=== PATIENT | male | born 1995 | race Caucasian/White ===

== ENCOUNTER 2020-07-02 13:58 | Inpatient (IN) | payer OTHER ==
[~2020-07-02] VITALS: Ht 170.2 cm; Wt 70.5 kg
--- NOTE | 2020-07-02 14:27 | RAD ---
XR FOREARM_LEFT 2 VIEWS History: Impaled nail. Comparison: None. Technique: 2 views the left forearm. Findings: A metallic nail extends through the distal forearm with approximately 2.9 cm beyond the skin surface and 3.7 cm within the arm. The nail is superimposed on the ulna in both projections, however no osseo us fragments are identified to suggest extension through the bone. Subcutaneous air in the volar soft tissues. Impression: 1. Metallic nail within the soft tissues of the distal forearm. Approximately 3.7 cm of length remai n within the soft tissues. Though the nail is superimposed on the ulna in both projections, there are no fracture lucencies or osseous fragments to suggest transcortical extension. Additional oblique vi ews may be required to ensure no bony involvement. Electronically signed by: Stevo Holland MD (07/02/2020 2:24 PM) [facility]
--- NOTE | 2020-07-02 14:31 | ED.ADGEN ---
Past Medical History Past Medical History: No Pertinent History Past Surgical History: No Surgical History, Tonsillectomy Smoking Status: Never Smoker Alcohol Use: Occasionally Drug Use: Marijuana General Adult EDM: Chief Complaint: UPPER EXTREMITY INJURY HPI: HPI: Patient is a 25 year old male who presents emergency department with complaints of a nail being stuck in his left forearm. Patient reports that he was at work when he accidentally shot a nail into his left forearm. Patient states he is right-hand dominant his last tetanus shot was about a year ago. Patient states he is unable to move his left wrist or fingers because of the increase in pain. He states that his fingers feel little tingly but denies any numbness or weakness. He currently rates his pain a 3 out of 10 on the pain scale, he reports that the pain is worse with movement, rest is only thing that helps to take the pain away. He denies any tobacco use, states he smokes marijuana and CBD products daily. Review of Systems: Review of Systems: Complete ROS is negative unless otherwise noted in HPI. Current Medications: Current Medications Medications (Trade) Dose Ordered Sig/Chelita Start Time Stop Time Status Last Admin Dose Admin Cefazolin Sodium (Ancef) 1 gm 1X ONCE 07/02/20 15:15 07/02/20 15:16 DC Morphine Sulfate (Morphine Sulfate) 4 mg 1X ONCE 07/02/20 15:15 07/02/20 15:16 DC Ondansetron HCl (Zofran) 4 mg 1X ONCE 07/02/20 15:15 07/02/20 15:16 DC Allergies: Allergies: Allergies Coded Allergies Type Severity Reaction Last Updated Verified No Known Drug Allergies 07/02/20 No Physical Exam: PE: See Above Constitutional: Well developed, well nourished, no acute distress, non-toxic appearance. [] HENT: Normocephalic, atraumatic, bilateral external ears normal, nose normal. [] Eyes: PERRLA, EOMI, conjunctiva normal, no discharge. [] Neck: Normal range of motion, no stridor. [] Cardiovascular:Heart rate regular rhythm Lungs & Thorax: Respirations even and unlabored, no retractions, no respiratory distress Skin: Warm, dry, no erythema, no rash; metal nail sticking out through the posterior medial left forearm, there is 1/2 cm diameter entrance wound to the anterior forearm, no active bleeding, no purulent discharge [] Extremities: Left forearm: Medial tenderness to palpation without crepitus or obvious deformity, cap refill less than 2 seconds, no cyanosis, ROM limited due to pain, localized edema at the site of the foreign body Neurologic: Alert and oriented X 3, normal sensory, no focal deficits noted. [] Psychologic: Affect normal, judgement normal, mood normal. [] Current Patient Data: Vital Signs: Vital Signs Date Time Temp Pulse Resp B/P (MAP) Pulse Ox O2 Delivery O2 Flow Rate FiO2 07/02/20 14:05 98.7 89 16 157/95 (115) 98 Room Air 98.7 EKG: EKG: [] Heart Score: C/O Chest Pain: No Radiology/Procedures: Radiology/Procedures: PROCEDURE: FOREARM LEFT XR FOREARM_LEFT 2 VIEWS History: Impaled nail. Comparison: None. Technique: 2 views the left forearm. Findings: A metallic nail extends through the distal forearm with approximately 2.9 cm beyond the skin surface and 3.7 cm within the arm. The nail is superimposed on the ulna in both projections, however no osseous fragments are identified to suggest extension through the bone. Subcutaneous air in the volar soft tissues. Impression: 1. Metallic nail within the soft tissues of the distal forearm. Approximately 3.7 cm of length remain within the soft tissues. Though the nail is superimposed on the ulna in both projections, there are no fracture lucencies or osseous fragments to suggest transcortical extension. Additional oblique views may be required to ensure no bony involvement. Electronically signed by: Stevo Holland MD (07/02/2020 2:24 PM) [facility] [] Course & Med Decision Making: Course & Med Decision Making Pertinent Labs and Imaging studies reviewed. (See chart for details) 1506: Spoke with Dr. Carson will admit pt to the hospitalist and keep pt NPO for surgery this evening. 1510-spoke with Dr. Mancia who is the admitting physician, and care was assumed following discussion of patient. Will admit patient for left forearm foreign body Patient's vital signs stable. Patient remains afebrile, appears nontoxic, respirations even and unlabored. Patient will be admitted to the medical/surgical floor. Patient's case and plan of care also discussed with Dr. Segura [] Maggy Disclaimer: Dragon Disclaimer: This electronic medical record was generated, in whole or in part, using a voice recognition dictation system. Departure Departure Impression: Primary Impression: Foreign body in left forearm Additional Impression: Injury by nail gun Disposition: 09 ADMITTED INPATIENT Admitting Physician: ISABEL Key) Condition: STABLE Referrals: UNKNOWN PCP NAME (PCP) Problem Qualifiers Primary Impression: Foreign body in left forearm Encounter type: initial encounter Qualified Codes: S50.852A - Superficial foreign body of left forearm, initial encounter Additional Impression: Injury by nail gun Encounter type: initial encounter Qualified Codes: W29.4XXA - Contact with nail gun, initial encounter GREGOR BERNAL LIVE SOURCE OPERATOR Jul 02, 2020 14:31
[2020-07-02] MEDS ORDERED: ONDANSETRON PF 4 MG/2 ML VIAL. IV ONE (15:15)
[2020-07-02] MEDS ORDERED: ceFAZolin SODIUM IV Push 1 GM VIAL. IVP ONE (15:15)
[2020-07-02] MEDS ORDERED: MORPHINE SULFATE 4 MG/ML VIAL. IV ONE (15:15)
[2020-07-02] MEDS ORDERED: IV NORMAL SALINE 1000ML BAG 1,000 ML IV SCH (15:30)
[2020-07-02] MEDS ORDERED: MORPHINE SULFATE 4 MG/ML VIAL. IV PRN ×2 (15:30)
[2020-07-02] MEDS ORDERED: PIP/TAZO PER PHARMACY MC PRN (15:30)
[2020-07-02] MEDS ORDERED: ONDANSETRON PF 4 MG/2 ML VIAL. IV PRN (15:30)
--- NOTE | 2020-07-02 15:33 | PDOC1 ---
History and Physical Date of Admission Date of Admission DATE: 07/02/20 TIME: 15:20 Identification/Chief Complaint Chief Complaint Upper extremity injury Source Source: Caregiver, Chart review, Patient History of Present Illness History of Present Illness Is a 25-year-old male with no significant past medical history presents to the ED after suffering an injury to his left upper extremity today at work. Patient works in construction and was carrying a nail gun up a ladder at work today when he accidentally shot himself in his left forearm. Upon evaluation in the ED he rates his pain as 3/10, worse with movement. States his last tetanus shot was about a year ago. Orthopedic surgery was consulted in the ED for surgical removal of nail. Will admit patient for further medical management. Past Medical History Past Medical History Denies medical history Past Surgical History Past Surgical History: Tonsillectomy Family History Family History Denies significant family history Social History Smoke: No ALCOHOL: occassional Drugs: Marijuana Current Medications Current Medications Current Medications Morphine Sulfate (Morphine Sulfate) 4 mg 1X ONCE IV ; Start 07/02/20 at 15:15; Stop 07/02/20 at 15:16; Status DC Ondansetron HCl (Zofran) 4 mg 1X ONCE IV ; Start 07/02/20 at 15:15; Stop 07/02/20 at 15:16; Status DC Cefazolin Sodium (Ancef) 1 gm 1X ONCE IVP ; Start 07/02/20 at 15:15; Stop 07/02/20 at 15:16; Status DC Allergies Allergies: Coded Allergies: No Known Drug Allergies (Unverified , 07/02/20) ROS Review of System GENERAL: No history of weight change, weakness or fevers. SKIN: No bruising, hair changes or rashes. EYES: No blurred, double or loss of vision. NOSE AND THROAT: No history of nosebleeds, hoarseness or sore throat. HEART: Denies chest pain, denies palpitations. LUNGS: Denies cough, hemoptysis, wheezing or shortness of breath. GASTROINTESTINAL: Denies nausea, vomiting, abdominal pain. GENITOURINARY: Denies dysuria, frequency, urgency, hematuria. NEUROLOGIC: Denies history of numbness, tingling, tremor or weakness. PSYCHIATRIC: Denies anxiety, denies depression. ENDOCRINE: No history of heat or cold intolerance, polyuria or polydipsia. EXTREMITIES: Left forearm pain. Denies muscle weakness, joint pain, pain on walking or stiffness. Physical Exam Physical Exam General: Alert, Oriented X3, Cooperative, No acute distress HEENT: PERRLA, EOMI Lungs: Clear to auscultation, Normal air movement Heart: RRR, no murmurs Cardiovascular: S1, S2 Abdomen: Normal bowel sounds, Soft, No tenderness Extremities: Nail penetrating through left forearm. No clubbing, No cyanosis Skin: No rashes, No significant lesion Neuro: Normal speech, Normal tone, Sensation intact Psych/Mental Status: Mental status NL, Mood NL Vitals Vitals Vital Signs Date Time Temp Pulse Resp B/P (MAP) Pulse Ox O2 Delivery O2 Flow Rate FiO2 07/02/20 14:05 98.7 89 16 157/95 (115) 98 Room Air 98.7 Images Images FOREARM LEFT XR FOREARM_LEFT 2 VIEWS History: Impaled nail. Comparison: None. Technique: 2 views the left forearm. Findings: A metallic nail extends through the distal forearm with approximately 2.9 cm beyond the skin surface and 3.7 cm within the arm. The nail is superimposed on the ulna in both projections, however no osseous fragments are identified to suggest extension through the bone. Subcutaneous air in the volar soft tissues. Impression: 1. Metallic nail within the soft tissues of the distal forearm. Approximately 3.7 cm of length remain within the soft tissues. Though the nail is superimposed on the ulna in both projections, there are no fracture lucencies or osseous fragments to suggest transcortical extension. Additional oblique views may be required to ensure no bony involvement. VTE Prophylaxis Ordered VTE Prophylaxis Devices: No VTE Pharmacological Prophylaxi: Yes Assessment/Plan Assessment/Plan Nail in the left upper extremity Plan: Consult to orthopedic surgery Anticipate surgical intervention today IV Zosyn Patient is up-to-date on tetanus vaccination Pain management FEN - NPO; then regular diet PPX - Heparin FULL CODE Dispo - inpatient for above; he names his mother is a surrogate decision-maker. Justifications for Admission Other Justification LIBORIO DILL MD Jul 02, 2020 15:33
[2020-07-02] MEDS ORDERED: HYDROcodone/APAP 5/325MG 1 TAB TABLET PO PRN ×2 (15:45)
[2020-07-02] MEDS ORDERED: BISACODYL 10 MG SUPP.RECT. PR PRN (15:45)
[2020-07-02] MEDS ORDERED: ONDANSETRON PF 4 MG/2 ML VIAL. IVP PRN (15:45)
[2020-07-02] MEDS ORDERED: ACETAMINOPHEN 325 MG TABLET. PO PRN (15:45)
[2020-07-02] MEDS ORDERED: MAGNESIUM HYDROXIDE 2,400 MG/30 ML ORAL.SUSP. PO PRN (15:45)
[2020-07-02] MEDS ORDERED: CALCIUM CARBONATE 500 MG TAB.CHEW PO PRN (15:45)
[2020-07-02] MEDS ORDERED: ZOLPIDEM 5 MG TABLET. PO PRN (15:45)
[2020-07-02] MEDS ORDERED: oxyCODONE/APAP 5/325 1 TAB TABLET PO PRN ×2 (15:45)
[2020-07-02] MEDS ORDERED: MAG HYDROX/ALUMINUM HYD/SIMETH 30 ML ORAL.SUSP PO PRN (15:45)
[2020-07-02] MEDS ORDERED: MORPHINE SULFATE 2 MG/ML VIAL. IVP PRN (16:45)
[2020-07-02] MEDS ORDERED: PROCHLORPERAZINE 10 MG/2 ML VIAL. IVP PRN (16:45)
[2020-07-02] MEDS ORDERED: fentaNYL PF VIAL 100 MCG/2 ML VIAL IVP PRN ×2 (16:45)
[2020-07-02] MEDS ORDERED: HYDROmorphone 2 MG/ML VIAL IVP PRN (16:45)
[2020-07-02] MEDS ORDERED: IV RINGERS,LACTATED 1000ML 1,000 ML IV SCH (16:45)
[2020-07-02] MEDS ORDERED: PIPERACILLIN/TAZOBACTAM 3.375 GM in IV NORMAL SALINE 50ML 50 ML IV SCH (17:00)
[2020-07-02] MEDS ORDERED: fentaNYL PF VIAL 100 MCG/2 ML VIAL ONE (18:23)
[2020-07-02] MEDS ORDERED: KETOROLAC 30 MG/ML VIAL. ONE (18:31)
[2020-07-02] MEDS ORDERED: SEVOFLURANE 16 TO 30 MINUTES. IH ONE (18:31)
[2020-07-02] MEDS ORDERED: BUPIVACAINE-EPI 0.5%-1:200000 MPF 30 ML VIAL. ONE (18:58)
[2020-07-02] MEDS ORDERED: CEPH750C9 PO (19:24)
[2020-07-02] MEDS ORDERED: HYDR-2759 PO (19:24)
--- NOTE | 2020-07-02 19:40 | DISCH ---
DISCHARGE INSTRUCTIONS Condition on Discharge Condition on Discharge: Stable Activity After Discharge Activity Instructions for Disc: Other, see below (Fine motor use with left hand only no hard grasping, may eat write type and similar activities) Bathing Instructions: Shower-keep dressing dry Lifting Instructions after Dis: No heavy lifting, No pulling or pushing Weight Bearing Status after Di: Non weight bearing Diet after Discharge Diet after Discharge: Regular Wound Incision Care Wound/Incision Care: Ice to area for comfort, Keep wound elevated, Do not change dressing (Keep dressing intact unless it is soiled or causing numbness and tingling because it is tight. Cover or elevate to avoid getting it wet in the shower) Contacting the after DC Call your doctor for: Concerns you may have Follow-Up Follow up with: Dr. Carson or Reid 7 to 10 days ELLA CARSON MD Jul 02, 2020 19:40
[2020-07-02 19:45] VITALS: BP 150/86
[2020-07-02] MEDS ORDERED: HYDROcodone/APAP 7.5/325MG 1 TAB TABLET PO ONE (20:15)
[2020-07-02] MEDS ORDERED: HEPARIN for SUB-Q USE 5,000 UNIT/ML VIAL. SQ SCH (22:00)
--- NOTE | 2020-07-02 23:07 | PDOC4 ---
Operative Note Operative Note Date of surgery: 07/02/2020 Preoperative diagnosis: Foreign body (nail) left forearm Postoperative diagnosis: Same Operative procedure: Removal foreign body and irrigation debridement left for carolyne Surgeon: Alli Anesthesia: General Estimated blood loss: 15 cc Complications: None Operative indications: Please see my preoperative emergency department consultation for detailed operative indications and note that patient was injured at work when nail from a nail gun penetrated into his left forearm. Sensation to light touch and gross motor function and pulses capillary refill appeared to be intact but he could not move his fingers likely due to severe pain. I did go over with him the concern for potential nerve or blood vessel damage with the penetrating injury, the necessity of removing the nail atraumatically as possible and the concern of foreign material from the adhesive and strip that holds the nails together. We did talk about the possibility of later nerve compromise from swelling possibility of infection and other medical or other anesthetic complications. He agrees to proceed with surgical evaluation and treatment which was delayed until n.p.o. status was acceptable for anesthesia. Operative text: Patient was identified procedure verified patient placed in the supine position on the operating table. After adequate amounts of general anesthesia were administered the left upper extremity was prepped and draped in standard sterile fashion with an upper arm tourniquet. After timeout was performed patient procedure identified and verified the incision was first widened at the exit over the ulnar side of the forearm. And closely examining the x-rays and the amount of the point of the nail sticking out it was clear that the head of the nail was very significantly buried in the forearm and I judged that pushing it backward could likely cause more damage as well as increase the likelihood of leaving a foreign body with the adhesive thin strip material that was still attached to the nail near its midpoint. Blunt dissection was carried out therefore surrounding the exit portion of the nail on the ulnar aspect of the forearm. Some venous bleeding was encountered superficially and the tourniquet was inflated to 250 mmHg temporarily where additional probing and blunt dissection carried out to gently release tissue and remove the nail from the ulnar exit wound. Thorough irrigation was carried out with normal saline solution after opening up the entrance wound with a longitudinal incision and probing which appeared to take a course superficial to the median nerve as the area coursed a bit more proximal and ulnar. Superficial venous bleeding was controlled by electrocautery and further thorough irrigation carried out from both sides of the wound ensuring good irrigation and debridement of slightly damaged devitalized tissue at the skin area more so at the entrance wound than the exit wound. Following thorough irrigation and blunt dissection and exploration of the area no active arterial bleeding was noted after the tourniquet was deflated and a loose closure was accomplished of both wounds with 3-0 nylon suture. Both areas were then infused superficially with half percent Marcaine with epinephrine and sterile dressings were placed using Xeroform gauze 4 x 4's cast padding and a gently tensioned Jonnathan wrap. Fingers were noted be warm and pink following deflation of the tourniquet and it was noted in postop holding that patient could fully flex and extend his fingers and his sensation to the median ulnar and radial nerve distribution appeared grossly intact as tested his motor function and capillary refill. ELLA PIÑA MD Jul 02, 2020 23:07
--- NOTE | 2020-07-03 02:24 | CONS ---
DATE OF CONSULTATION: 07/02/2020 REQUESTING PHYSICIAN: Akila Hooper APRN. REASON FOR CONSULTATION: Foreign body/nail in left forearm. HISTORY OF PRESENT ILLNESS: The patient is a 25-year-old male that was at work today who was climbing up a ladder and indicates that he had to reach around to try to hold on and a nail gun unfortunately contacted his arm twice, the second time going off and shooting a collated nail into his forearm. The nail had penetrated the skin such that he could not get it out of his left forearm. He is right hand dominant and was unable to move his fingers due to severe pain and has controlled pain at rest, but very severe with movement. PAST MEDICAL HISTORY: He denies. PAST SURGICAL HISTORY: Only significant for a tonsillectomy. ALLERGIES: No known drug allergies. MEDICATIONS: No current medications. REVIEW OF SYSTEMS: Denies any fever, chills, chest pain, shortness of breath, focal weakness. Does have a little bit of tingling in the fingers occasionally, especially with any attempted movement. SOCIAL HISTORY: Denies cigarette smoking, occasional alcohol use and he does use marijuana as well as CBD products. PHYSICAL EXAMINATION: VITAL SIGNS: Pleasant, cooperative, 25-year-old male, alert and oriented, mild distress because of the pain in his left forearm. HEENT: Atraumatic, normocephalic. HEART: Regular rate and rhythm. LUNGS: Clear to auscultation bilaterally. EXTREMITIES: On examination of the left forearm, he has an entry point along the volar mid distal forearm area and obliquely nail tracts that protrudes along the ulnar aspect more centrally in his forearm. He cannot move the fingers because they feel pinned down. Grossly, he is intact to light touch sensation in the median, ulnar and radial nerve distribution. Capillary refill is intact throughout, and he does have distal palpable pulses. Compartments appear soft. The pointed portion of the nail was sticking out the ulnar portion of his mid forearm and there is visible the fastening material from that sticks the string of nails together. There is no evidence of gross contamination nor did he appear to have close on that at the nail shot through. X-rays show a headed appears to be a framing nail in the forearm and does not appear to have contacted any bone. There is no evidence of fracture or cortical abnormality present. IMPRESSION: Foreign body nail and left forearm. PLAN: I went over with he and his mom the recommended excision of the nail in the operating room and I did indicate to him that there is a possibility of additional damage in removing the nail, but I would attempt to mitigate that with washing the area out well and attempting not to leave any foreign material such as the adhesive collating the nails to the strips. We did talk about the possibility of nerve or blood vessel damage, although not currently symptomatic. It is certainly possible later swelling or damage to the tissue; even removing the nail could cause some nerve or blood vessel damage, which may or may not be recoverable. We also talked about the possibility of infection, medical or other anesthetic complications among others. He wishes to proceed with surgical evaluation and treatment, which will occur today pending adequate n.p.o. status as he has last eaten at noontime today, so planning potentially a 6:[address]: Walt TID: [id number]
== END 2020-07-02 19:44 | disposition home or self-care (01) | DRG 581 ==
LOC: ER 13:58 → ED HOLD 15:10
PROVIDERS: ADMIT Family Medicine; ATTEND Family Medicine
PROC: 3E1U38Z Irrigation of Joints using Irrigating Substance, Percutaneous Approach (ICD-10-PCS; 2020-07-02)
PROC: 0JCH0ZZ Extirpation of Matter from Left Lower Arm Subcutaneous Tissue and Fascia, Open Approach (ICD-10-PCS; 2020-07-02)
PROC: 0KBB0ZZ Excision of Left Lower Arm and Wrist Muscle, Open Approach (ICD-10-PCS; principal; 2020-07-02 18:00)
DX: S50.852A Superficial foreign body of left forearm, initial encounter (principal); W45.0XXA Nail entering through skin, initial encounter; W27.8XXA Contact with other nonpowered hand tool, initial encounter; X58.XXXA Exposure to other specified factors, initial encounter; Z20.822 Contact with and (suspected) exposure to COVID-19; Z90.49 Acquired absence of other specified parts of digestive tract; Y93.89 Activity, other specified; Y92.89 Other specified places as the place of occurrence of the external cause; Y99.8 Other external cause status
CPT/HCPCS: 73090; 87426; 96365; 96375; 99285; A4213; A4930; A6223; A6402; A6449; J0690; J1885; J2270; J2405; J2543; J3010; J7030; U0003; U0005